=== PATIENT | female | born 1985 | race Asian ===

== ENCOUNTER 2016-12-31 | Inpatient (IN) | payer SELFPAY ==
[~2016-12-31] VITALS: Ht 160 cm; Wt 60.3 kg
[2016-12-31] MEDS ORDERED: PREN1SGL25 PO (00:20)
[2016-12-31] MEDS ORDERED: LACTATED RINGERS 1,000 ML IV SCH (00:20)
[2016-12-31] MEDS ORDERED: CITRIC ACID/SODIUM CITRATE 30 ML UDC PO ONE (00:20)
[2016-12-31 00:27] VITALS: BP 111/72
[2016-12-31 00:47] LABS: BASOPHILS # (AUTO) 0.1 K/uL (0.00-0.22); BASOPHILS % (AUTO) 1.3 % (0.0-2.0); EOSINOPHILS # (AUTO) 0.1 K/uL (0-0.4); EOSINOPHILS % (AUTO) 1.1 % (0.0-4.0); HEMATOCRIT 37.8 % (36-48); HEMOGLOBIN 12.4 g/dL (12.0-16.0); LYMPHOCYTES # (AUTO) 1.4 K/uL (2.5-16.5); LYMPHOCYTES % (AUTO) 13.4 % (20.5-51.1); MEAN CORPUSCULAR HEMOGLOBIN 33 pg (27-31); MEAN CORPUSCULAR HGB CONC 33 g/dL (33-37); MEAN CORPUSCULAR VOLUME 99 fL (80-94); MONOCYTES # (AUTO) 0.7 K/uL (0.8-1.0); MONOCYTES % (AUTO) 7.2 % (1.7-9.3); NEUTROPHILS # (AUTO) 7.9 K/uL (1.8-7.7); PLATELET COUNT (AUTO) 117 K/uL (140-450); RED BLOOD CELL COUNT(AUTO) 3.81 MIL/uL (4.20-5.40); RED CELL DISTRIBUTION WIDTH 12.9 % (11.6-13.7); WHITE BLOOD COUNT (AUTO) 10.2 K/uL (4.8-10.8)
[2016-12-31 00:48] LABS: APPEARANCE,URINE CLEAR (CLEAR); BILIRUBIN,URINE NEGATIVE (NEGATIVE); BLOOD, URINE TRACE-L (NEGATIVE); COLOR,URINE YELLOW (YELLOW); LEUKOCYTE ESTERASE ,URINE NEGATIVE (NEGATIVE); NITRITE, URINE NEGATIVE (NEGATIVE); UGLUCOSE NEGATIVE (NEGATIVE)
[2016-12-31 00:57] LABS: ANION GAP 13.2 (8-16); CARBON DIOXIDE 23.7 mmol/L (21-32); CREATININE 0.4 mg/dL (0.6-1.3); POTASSIUM 3.9 mmol/L (3.5-5.1)
[2016-12-31 01:03] LABS: ALBUMIN 2.9 g/dL (3.4-5.0); TOTAL BILIRUBIN 0.3 mg/dL (0.0-1.0)
[2016-12-31 01:52] LABS: RBC,URINE 0-5 (RARE) /HPF (0-5); WBC,URINE 0-5 (RARE) /HPF (0-5)
[2016-12-31] MEDS ORDERED: ONDANSETRON 4 MG/2 ML VIAL IVP ONE (05:50)
[2016-12-31] MEDS ORDERED: ePHEDrine 50 MG/ML VIAL IV ONE (05:50)
[2016-12-31] MEDS ORDERED: BUPIVACAINE-MPF 0.75% 10 ML VIAL INJ ONE (05:50)
[2016-12-31] MEDS ORDERED: ceFAZolin 1,000 MG VIAL ONE (05:59)
[2016-12-31] MEDS ORDERED: OXYTOCIN 10 UNITS/ML VIAL ONE ×2 (06:09→16:11)
[2016-12-31] MEDS ORDERED: METHYLERGONOVINE 0.2 MG/ML AMP ONE (06:09)
[2016-12-31] MEDS ORDERED: TRIAMCINOLONE 40 MG/ML 5ML VIAL ONE (06:09)
[2016-12-31] MEDS ORDERED: fentaNYL 0.05 MG/ML VIAL ONE (06:10)
[2016-12-31] MEDS ORDERED: KETAMINE 500 MG/5 ML VIAL ONE (06:10)
[2016-12-31] MEDS ORDERED: MIDAZOLAM 2 MG/2 ML VIAL ONE (06:10)
[2016-12-31] MEDS ORDERED: MORPHINE PRES FREE 10 MG/10 ML AMP IV ONE (06:11)
[2016-12-31] MEDS ORDERED: KETOROLAC 30 MG/ML VIAL IVP PRN (06:30)
[2016-12-31] MEDS ORDERED: diphenhydrAMINE 50 MG/ML VIAL IVP PRN (06:30)
[2016-12-31] MEDS ORDERED: ONDANSETRON 4 MG/2 ML VIAL IVP PRN (06:30)
[2016-12-31] MEDS ORDERED: TEMAZEPAM 15 MG CAP PO PRN (06:40)
[2016-12-31] MEDS ORDERED: MEASLES, MUMPS, AND RUBELLA 1 VIAL SQVAC PRN (06:40)
[2016-12-31] MEDS ORDERED: METHYLERGONOVINE 0.2 MG/ML AMP IM PRN (06:40)
[2016-12-31] MEDS ORDERED: oxyCODONE/APAP 5/325 MG 1 TAB TAB PO PRN (06:40)
[2016-12-31] MEDS ORDERED: TRIMETHOBENZAMIDE 200 MG/2 ML SYR IM PRN (06:40)
[2016-12-31] MEDS ORDERED: OXYTOCIN 20 UNITS/LR PREMIX 1,000 ML IV ONE (07:44)
[2016-12-31] MEDS: OXYTOCIN 20 UNITS in LACTATED RINGERS 1,000 ML IV SCH ×2 (09:28→17:18)
--- NOTE | 2016-12-31 10:53 | NUR ---
PATIENT HAS BEEN SCREENED AND CATEGORIZED LOW NUTRITION RISK. PATIENT WILL BE SEEN WITHIN 7 DAYS OF ADMISSION. 01/06/[address]
[2016-12-31 13:21] LABS: RAPID PLASMA REAGIN NON-REACTIVE (Non Reactiv)
[2016-12-31] MEDS: DOCUSATE SOD/SENNA 50/8.6 MG 1 TAB PO SCH (21:00)
[2017-01-01] MEDS ORDERED: OXYTOCIN 20 UNITS/LR PREMIX 1,000 ML IV ONE (00:25)
[2017-01-01] MEDS: OXYTOCIN 20 UNITS in LACTATED RINGERS 1,000 ML IV SCH (00:49)
[2017-01-01 07:11] LABS: BASOPHILS # (AUTO) 0.1 K/uL (0.00-0.22); BASOPHILS % (AUTO) 0.5 % (0.0-2.0); EOSINOPHILS % (AUTO) 0.4 % (0.0-4.0); HEMATOCRIT 23.5 % (36-48); HEMOGLOBIN 7.7 g/dL (12.0-16.0); LYMPHOCYTES # (AUTO) 0.7 K/uL (2.5-16.5); LYMPHOCYTES % (AUTO) 5.5 % (20.5-51.1); MEAN CORPUSCULAR HEMOGLOBIN 32 pg (27-31); MEAN CORPUSCULAR HGB CONC 33 g/dL (33-37); MEAN CORPUSCULAR VOLUME 99 fL (80-94); MONOCYTES # (AUTO) 0.8 K/uL (0.8-1.0); MONOCYTES % (AUTO) 6.8 % (1.7-9.3); NEUTROPHILS # (AUTO) 10.8 K/uL (1.8-7.7); NEUTROPHILS % (AUTO) 86.8 % (42.2-75.2); PLATELET COUNT (AUTO) 104 K/uL (140-450); RED BLOOD CELL COUNT(AUTO) 2.38 MIL/uL (4.20-5.40); RED CELL DISTRIBUTION WIDTH 13.5 % (11.6-13.7)
[2017-01-01 08:27] LABS: WHITE BLOOD COUNT (AUTO) 12.4 K/uL (4.8-10.8)
[2017-01-01] MEDS: SIMETHICONE 80 MG TAB.CHEW PO PRN ×2 (09:24→13:23)
[2017-01-01] MEDS: HYDROcodone/APAP 5/325 MG 1 TAB TAB PO PRN ×2 (09:26→16:12)
[2017-01-01] MEDS ORDERED: FERROUS GLUCONATE 324 MG TAB PO SCH (20:05)
[2017-01-01] MEDS: DOCUSATE SOD/SENNA 50/8.6 MG 1 TAB PO SCH (21:01)
[2017-01-01] MEDS: FERROUS SULFATE 325 MG TABEC PO SCH (21:02)
[2017-01-01] MEDS ORDERED: FERROUS SULFATE 325 MG TABEC PO ONE (21:04)
[2017-01-02] MEDS: IBUPROFEN 800 MG TAB PO PRN ×2 (08:32→18:56)
[2017-01-02] MEDS: FERROUS SULFATE 325 MG TABEC PO SCH ×3 (08:32→17:11)
[2017-01-02] MEDS: DOCUSATE SOD/SENNA 50/8.6 MG 1 TAB PO SCH (20:58)
[2017-01-03] MEDS: IBUPROFEN 800 MG TAB PO PRN (06:34)
[2017-01-03] MEDS: FERROUS SULFATE 325 MG TABEC PO SCH ×2 (12:23→12:26)
== END 2017-01-03 16:05 | disposition home or self-care (01) | DRG 766 ==
LOC: MLD → MFCC 08:12
PROVIDERS: ADMIT Obstetrics & Gynecology; ATTEND Obstetrics & Gynecology
PROC: 10D00Z1 Extraction of Products of Conception, Low, Open Approach (ICD-10-PCS; principal; 2016-12-31 06:00)
PROC: 3E0234Z Introduction of Serum, Toxoid and Vaccine into Muscle, Percutaneous Approach (ICD-10-PCS; 2017-01-01)
DX: O34.211 Maternal care for low transverse scar from previous cesarean delivery (principal); Z23 Encounter for immunization; Z37.0 Single live birth; Z3A.39 39 weeks gestation of pregnancy
CPT/HCPCS: 36415; 51702; 80053; 81001; 85025; 86592; 86886; 86900; 86901; 90715; J0690; J1200; J1885; J2210; J2250; J2270; J2405; J2590; J3010; J3301; J3490; J7060; J7120